=== PATIENT | male | born 1970 | race Caucasian/White ===

== ENCOUNTER 2017-12-31 22:01 | Observation (INO) | payer OTHER ==
[~2017-12-31] VITALS: Ht 177.8 cm; Wt 100.2 kg
[2017-12-31 22:09] VITALS: BP 201/129; BP 207/129
[2017-12-31 22:43] LABS: HEMATOCRIT 42.6 % (42.0-52.0); HEMOGLOBIN 14.6 gm/dL (14.0-18.0); MCHC 34.1 g/dL (28.0-37.0); MPV 8.4 fl. (7.2-11.1); RBC 4.84 mil/uL (4.50-6.00); RDW-CV 12.9 % (10.5-14.5); WBC 10.2 thou/uL (4.0-11.0)
[2017-12-31 22:50] LABS: ANION GAP 8 mmol/L (7-16); BUN 14 mg/dL (7-18); CALCIUM 8.7 mg/dL (8.5-10.1); CHLORIDE 101 mmol/L (98-107); CO2 29 mmol/L (21-32); CREATININE 0.8 mg/dL (0.6-1.3); GLUCOSE 119 mg/dL (70-99); POTASSIUM 3.6 mmol/L (3.5-5.1); SODIUM 138 mmol/L (136-145)
[2017-12-31 22:58] LABS: ALBUMIN 4.1 g/dL (3.4-5.0); ALKALINE PHOSPHATASE 114 U/L (46-116); SGOT 18 U/L (15-37); SGPT 51 U/L (30-65); TOTAL BILIRUBIN 1.1 mg/dL (<0.1-1.0); TOTAL PROTEIN 7.8 g/dL (6.4-8.2); TROPONIN-I LEVEL <0.06 ng/mL (<0.06)
[2017-12-31 23:25] LABS: URINE BILIRUBIN NEGATIVE (Negative); URINE BLOOD NEGATIVE (Negative); URINE CLARITY CLEAR; URINE COLOR YELLOW; URINE GLUCOSE-RANDOM NEGATIVE (Negative); URINE KETONES TRACE (Negative); URINE LEUKOCYTES-REFLEX NEGATIVE (Negative); URINE NITRITE-REFLEX NEGATIVE (Negative); URINE PROTEIN NEGATIVE (Negative); URINE SPECIFIC GRAVITY >= 1.030 (1.005-1.030); URINE UROBILINOGEN 0.2 E.U./dl (0.2-1.0)
[2018-01-01] VITALS (7 sets, daily range): BP systolic 108–147; BP diastolic 72–100
--- NOTE | 2018-01-01 01:42 | NUR ---
ALERT AND ORIENTED X 4 MALE PATIENT TO BED 233 BY CART FROM ER IN STABLE CONDITION ACCOMPANIED BY STAFF AND . ADMISSION ROUTINES IN PROGRESS. VITAL SIGNS STABLE WITH BP WITHIN NORMAL LIMITS. LEFT ARM AND HEADACHE PAIN ESSENTIALLY RESOLVED. SR ON MONITOR. CONTINUE TO MONITOR.
--- NOTE | 2018-01-01 05:07 | NUR ---
PATIENT HAS REMAINED ALERT AND ORIENTED X 4 AND RESTING QUIETLY FROM ARRIVAL TO UNIT. NO FURTHER COMPLAINTS OF HEADACHE OR CHEST PAIN. VITAL SIGNS STABLE WITH NORMAL BP. AT BEDSIDE. CONTINUE TO MONITOR.
[2018-01-01] MEDS ORDERED: ASPIR 8181 MG PO (09:47)
[2018-01-01] MEDS ORDERED: HYDROCHLOROTHIA25 M1 PO (09:47)
--- NOTE | 2018-01-01 10:55 | EKG ---
[place] [address] ELECTROCARDIOGRAM REPORT Name: ANJALI ZUÑIGA Room: [address] M.R.#: [id number] Admission: 12/31/17 Attend Phys: Nathaniel Aly MD Discharge: Date of : 68 Report #: [id number] THIS REPORT FOR: //name// [facility] ED Test Date: 2017-12-31 Test Time: 22:25:00 Pat Name: ANJALI ZUÑIGA Department: Room: [facility] Gender: M Building Supervisor: : [id number] Requested By: Shashank Polo Order Number: [id number] MD: Morteza Mott Measurements Intervals [place] Rate: 94 P: 48 [place]: 138 QRS: -2 QRSD: 98 T: 38 QT: 346 QTc: 433 Interpretive Statements Sinus rhythm Probable left atrial enlargement RSR' in V1 or V2, right VCD or RVH Left ventricular hypertrophy No previous ECG available for comparison Electronically Signed On 01-01-2018 10:55:12 DATA CONSULTANT by Morteza Mott [email or web address] <ELECTRONICALLY SIGNED> By: Morteza Mott MD, FAC 01/01/18 1055 2225 24 Morteza Mott MD, [facility] /EPI
[2018-01-01 10:56] LABS: CHOLESTEROL 189 mg/dL (<200); HDL CHOLESTEROL 32 mg/dL (>40); LDL CHOLESTEROL 135 mg/dL (<100); SERUM ASSESSMENT Clear; TC:HDL 5.9 Ratio (Not establshd); TRIGLYCERIDE 111 mg/dL (<150); VLDL 22 mg/dL (<40)
--- NOTE | 2018-01-01 12:12 | NUR ---
RECEIVED REPORT. ASSUMED CARE OF PT AT 0730. VSS. O2 SAT 95% ON ROOM AIR. PT A&O X4. CARDAIC MONITOR IN PLACE TRACING SR. AM ASSESSMENT AND VITALS COMPLETED CHARTED. IV SALINE LOCKED. PT REPORTS SLIGHT HEAD PRESSURE BUT DOES NOT WANT MEDICATION FOR PAIN AT THIS TIME. INSTRUCTION GIVEN TO REPORT INCREASED PAIN PROMPTLY FOR PAIN MANAGEMENT. PT INFORMED OF PLAN OF CARE, PT COMMUNICATES UNDERSTANDING. PT TO HAVE STRESS ECHO THIS AFTERNOON AND THEN MAY DC IF RESULTS NEGATIVE. PT TO BE NPO FOR LUNCH EXCEPT SIPS OF WATER. FAMILY AT BEDSIDE. CALL LIGHT IS WITHIN REACH. PT UP AD MAIDA IN ROOM. WILL CONTINUE TO MONITOR.
--- NOTE | 2018-01-01 17:15 | EXE ---
[place] [address] STRESS ECHOCARDIOGRAM Name: ANJALI ZUÑIGA Room: [address] MAbdoulR.#: [id number] Admission: 12/31/17 Attend Phys: Nathaniel Aly, Discharge: Date of : 68 Date of Service: 01/01/18 1715 Report #: [id number] THIS REPORT FOR: //name// APPROVED REPORT Exam: Stress Echocardiogram Indication: Chest pain , Hypertension Patient Location: In-Patient Stress Nurse: Ani Mcfarland RN Room #: [facility] Supervising Physician: Morteza Mott MD Ht: 5 ft 10 in HR: 97 bpm BP: 166/107 mmHg Medical History Cardiac Risk Factors: HTN, Hyperlipidemia Procedure The patient underwent an Exercise Stress Test using the Ash Protocol. Blood pressure, heart rate, and EKG were monitored. An Echocardiogram was performed by generation technician in four stages in quad fashion. At peak stress, four selected images were obtained and placed side by side with resting images for comparison. Stress Test Details Stress Test: Exercise stress testing was performed using a Ash protocol. HR Resting HR: 97 bpm Max Heart Rate (APMHR): 172 bpm Max HR Achieved: 176 bpm Target HR (85% APMHR): 146 bpm % of APMHR: 102 Recovery HR: 118 bpm HR response to stress: Normal HR response to stress BP Resting BP: 166/107 mmHg Max BP: 235/111 mmHg Recovery BP: 140/100 mmHg ECG Resting ECG: Sinus Rhythm, normal EKG Stress ECG: Sinus Tachycardia ST Change: None Arrhythmia: [place] [address] STRESS ECHOCARDIOGRAM Name: ANJALI ZUÑIGA Room: [address] Ilya#: [id number] Admission: 12/31/17 Attend Phys: Nathaniel Aly, Discharge: Date of : 68 Date of Service: 01/01/18 1715 Report #: [id number] Recovery ECG: Sinus Rhythm, normal EKG Recovery ST Change: None Recovery Arrhythmia: None Clinical Reason for Termination: Dyspnea, Completed protocol Exercise duration: 7 min sec Highest Stage Achieved: Stage 2: 2.5 mph at 12% grade. Exercise capacity: 8.58 METs The patient tolerated standard Ash protocol exercise without significant symptoms. Patient did exhibit hypertensive response to exercise. Stress ECG Conclusion The baseline 12 elect cardiac shows normal sinus rhythm with no significant ST or T wave abnormality. EKGs obtained during and post exercise stress show sinus rhythm and sinus tachycardia with no significant ST or T wave changes when compared to baseline. Pre-Stress Echo The resting Echocardiogram showed normal left ventricular contractility with an estimated Ejection Fraction of about 55-60%. Post-Stress Echo The stress Echocardiogram showed normal left ventricular contractility with an estimated Ejection Fraction of about >70%. Clinical No clinical or ECG evidence for ischemia. Conclusion Clinical Response: Non-ischemic Exercise Capacity: Average Stress ECG Response: Non-ischemic Stress Echo Images: Non-ischemic The left ventricle is normal in size and wall thickness in both the rest and stress images. No prior study available for comparison. Other Information Study Quality: Good <Conclusion> [place] [address] STRESS ECHOCARDIOGRAM Name: ZUÑIGAANJALI Room: [address] CristinaRAbdoul#: [id number] Admission: 12/31/17 Attend Phys: Nathaniel Aly, Discharge: Date of : 68 Date of Service: 01/01/181714 Report #: [id number] The left ventricle is normal in size and wall thickness in both the rest and stress images. <ELECTRONICALLY SIGNED> By: Mateo Tang MD, FACC 01/01/181714 14 14 Mateo Tang MD, FACC /INF
--- NOTE | 2018-01-01 17:59 | NUR ---
PT COMPLETED STRESS TEST - RESULTS NORMAL. PROCEEDED WITH DISCHARGE ORDERED. DISCHARGE SUMMARY GONE OVER WITH PT; PT COMMUNICATED UNDERSTANDING. PT AWARE OF NEED TO CHOOSE A PCP IN ORDER TO HAVE A FOLLOW UP. PT AWARE TO PLATING OPERATOR SCRIPTS FROM PHARMACY. IV AND PLANNER/SCHEDULER REMOVED. ALL BELONGINGS GATHERED AND SENT WITH THE PT. VSS AT TIME OF DC. PT ABLE TO EAT DINNER PRIOR TO LEAVING. PT LEFT UNIT WITH NURSING STAFF. PT LEFT HOSPITAL IN CAR WITH .
== END 2018-01-01 18:22 | disposition home or self-care (01) ==
LOC: M.ERS 22:01 → M.TBA-ER 23:31 → M.2W 23:31
PROVIDERS: Emergency Medicine Emergency Medical Services; Internal Medicine; ADMIT Internal Medicine
DX: I16.1 Hypertensive emergency (principal); I10 Essential (primary) hypertension; E78.5 Hyperlipidemia, unspecified; E66.9 Obesity, unspecified; G44.209 Tension-type headache, unspecified, not intractable; I25.119 Atherosclerotic heart disease of native coronary artery with unspecified angina pectoris; Z82.49 Family history of ischemic heart disease and other diseases of the circulatory system; Z87.891 Personal history of nicotine dependence; Z68.31 Body mass index [BMI] 31.0-31.9, adult; Z23 Encounter for immunization